=== PATIENT | female | born 1975 | race Hispanic/Latino ===

== ENCOUNTER 2019-07-09 21:31 | Observation (INO) | payer SELFPAY ==
[~2019-07-09 21:31] MED LIST: Iopamidol-370 76% 500 ML 1 ML ONE
[2019-07-09] MEDS ORDERED: Ondansetron ODT 4 MG TAB ONE (21:38)
[2019-07-09] MEDS ORDERED: Acetaminophen 500 MG TAB ONE (22:04)
[2019-07-09] MEDS ORDERED: Metoclopramide HCl 10 MG/2 ML VIAL ONE (22:04)
[2019-07-09] MEDS ORDERED: diphenhydrAMINE 50 MG/ML VIAL ONE (22:04)
[2019-07-09 22:24] LABS: Prothrombin Time 12.9 SEC (12.0-14.7)
[2019-07-09 22:27] LABS: #Monocytes 0.2 thou/uL (0.11-0.59); #Neutrophils 8.9 thou/uL (1.40-6.50); %Basophils 0.2 % (0.0-1.0); %Eosinophils 0.1 % (0.0-10.0); %Lymphocytes 9.9 % (21.0-51.0); %Monocytes 1.9 % (0.0-10.0); %Neutrophils 87.9 % (42.0-75.0); Hemoglobin 13.6 g/dL (12.0-16.0); Mean Corpuscular HGB CONC 33.6 g/dL (32.0-36.0); Mean Corpuscular Hemoglobin 31.2 pg (27.0-31.0); Mean Corpuscular Volume 92.6 fL (78.0-98.0); Platelet Count 236 thou/uL (130-400); RBC Distribution Width 12.3 % (11.5-14.5); Red Blood Cell (RBC) Count 4.37 mill/uL (4.20-5.40); White Blood Cell (WBC) Count 10.1 thou/uL (4.8-10.8)
[2019-07-09 22:29] LABS: BHCG - Serum Negative (NEGATIVE); Pregs Control Background? CLEAR/WHITE (CLR/WHITE); Pregs Control Bar Appear? YES (CONTROL BAR)
[2019-07-09 22:30] LABS: PTT 22.6 SEC (22.9-36.1)
[2019-07-09 22:44] LABS: ALT (SGPT) 9 U/L (8-55); AST (SGOT) 17 U/L (5-34); Albumin 4.6 g/dL (3.5-5.0); Alkaline Phosphatase 63 U/L (40-110); Anion Gap 17 mmol/L (10-20); BUN (Urea Nitrogen) 16 mg/dL (7.0-18.7); Calc. Creatinine Clearance 0 mL/min (70-130); Calcium 10.1 mg/dL (7.8-10.44); Carbon Dioxide 19 mmol/L (22-29); Chloride 104 mmol/L (98-107); Estimated GFR-MDRD 86; Globulin 3.4 g/dL (2.4-3.5); Glucose 159 mg/dL (70-105); Potassium 3.5 mmol/L (3.5-5.1); Sodium 136 mmol/L (136-145)
--- NOTE | 2019-07-09 23:33 | CT ---
CT HEAD WITHOUT CONTRAST: History: Headache. Comparison: 03-06-13 FINDINGS: Ventricles are of normal size and position. Aneurysm clip in the base of the skull to the left of mid line is again seen producing spray artifact. There is no evidence of hemorrhage. No infarct, mass, or edema. Paranasal sinuses are clear. IMPRESSION: No acute abnormality. POS: OFF
--- NOTE | 2019-07-09 23:36 | CT ---
CTA HEAD: Technique: Axial tomograms were obtained with IV enhancement following angio protocol with multiplana r reconstruction and 3D post processing. Indications: Headache, history of aneurysm. Comparison: CTA head 02-16-13. FINDINGS: The intracranial internal carotid arteries are patent and symmetric. Aneurysm clip at the level of th e right internal carotid artery is again seen. This produces significant spray artifact. No evidence of recurrent aneurysm. The right MCA is patent and unremarkable. Left MCA is unremarkable. Both ACAs are patent and unremarkable. Basilar arteries unremarkable. Both cerebrals are unremarkable. 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 There is no change when compared to CTA head of 02-16-13. CTA NECK: Axial tomograms obtained with multiplanar reconstruction and 3D post processing. Indications: Headache. FINDINGS: Carotid arteries and extracranial internal carotid arteries are unremarkable. Vertebral arteries are patent and unremarkable. Soft tissues unremarkable. IMPRESSION: Unremarkable CTA neck. POS: OFF
[2019-07-10] MEDS ORDERED: Promethazine HCl 25 MG/ML VIAL ONE (00:10)
[2019-07-10] MEDS ORDERED: Ondansetron PF 4 MG/2 ML Vial IVP PRN (02:39)
[2019-07-10] MEDS ORDERED: HYDROcodone/Acetaminophen 5/325 mg Tablet PO PRN (02:39)
[2019-07-10] MEDS ORDERED: hydrALAZINE 20 MG/ML VIAL SLOW IVP PRN (02:43)
[2019-07-10] MEDS ORDERED: Morphine 2 MG/ML SYRINGE SLOW IVP PRN (02:43)
[2019-07-10] MEDS ORDERED: Sodium Chloride 0.9% 1,000 ML IV SCH (02:45)
[2019-07-10] MEDS ORDERED: Potassium Chloride 20 MEQ/100 ML PREMIX BAG IVPB SCH (03:00)
--- NOTE | 2019-07-10 03:42 | HP ---
PRESENTING COMPLAINT: Persistent headache. HISTORY OF PRESENT ILLNESS: Adrian Ayoub, 44-year-old female with past medical history of subarachnoid hemorrhage in 2013, status post coiling with followup MRI one year later, showing no residual bleeding. The patient presented today because of 3-day history of recurrent headache after recent travel. The patient developed associated nausea and vomiting since the last one day. Headaches continue to worsen. She rates the pain of headache on presentation at about 10/10. It is generalized. She was given Benadryl. An attempt was made to obtain LP by the ED physician, but was unsuccessful given the patient's movement. The patient is a bit drowsy and not giving much history. Sister at bedside is helping with history. Sister admits the patient, has a history of chronic cannabis abuse and has been using cannabis daily until the last three days. The patient denies any fever or chills. She denies any diarrhea. PAST MEDICAL HISTORY: Subarachnoid bleed of unknown etiology, status post endovascular coiling six years ago. PAST SURGICAL HISTORY: None. HOME MEDICATIONS: Keppra 500 b.i.d. SOCIAL HISTORY: The patient currently resides with sister. History of daily cannabis abuse. No history of alcohol or illicit drug use. FAMILY HISTORY: Significant for hypertension, but no CVA. REVIEW OF SYSTEMS: Poor given the patient appears to be sleepy, but intermittently answering few questions. She denies every other symptoms except as noted above, x10 systems reviewed. PHYSICAL EXAMINATION: CURRENT VITAL SIGNS: Blood pressure of 144/76, respiratory rate of 18, temperature afebrile at 98, O2 saturation is 98% on room air. GENERAL: Obese, young female, lying in bed, appears sleepy but arousable and intermittently conversant. HEENT: Head is atraumatic, normocephalic. Pupils equal and reactive to light. Anicteric. Dry oral mucosa. NECK: No JVD. No carotid bruit. RESPIRATORY: Good air entry. No crepitation. CARDIOVASCULAR: S1, S2. Rate and rhythm regular. GI: Abdomen is full, soft, nontender. Bowel sounds positive. EXTREMITIES: No pedal edema. No calf tenderness. NEUROLOGIC: The patient is drowsy, but after being given Benadryl, intermittently arousable. No neurological focal motor deficit. Pronator drift unable to obtain. LABORATORY DATA: WBC 10, hemoglobin 13, platelets 236. No bands. INR 1.0. Potassium 3.5, sodium 136, creatinine 0.7. AST and alkaline phosphatase normal. Head CT shows no acute intracranial pathology. No acute bleed noted, but noted artifact from previous aneurysm clip. CT of the [place] of [place] also unremarkable. IMPRESSION: 1. Recurrent headaches. 2. History of subarachnoid bleed. 3. Chronic marijuana use. PLAN: We will admit the patient to observation. We will obtain stat MRA to rule out subarachnoid bleed given unclear images from CT of the head. If the MRI is negative, then low likelihood of recurrence of bleed. We will address pain medication with p.r.n. morphine and Zofran for now given patient's recurrent nausea. History of cannabis use could predispose the patient to current symptoms at this time and this was discussed with the patient. The patient advised to avoid daily illicit drug use. We will do SCDs for DVT prophylaxis. No systemic heparin for now. Advanced directives, patient is a full code. We will start on gentle IV fluid and adjust after MRA. Total time spent in review of record, discussion with the patient and sister, greater than 55 minutes. Job ID: [id number]
[2019-07-10] MEDS ORDERED: Cyclobenzaprine 10 MG TAB ONE (06:32)
[2019-07-10 06:58] LABS: Hemoglobin 12.9 g/dL (12.0-16.0); Mean Corpuscular HGB CONC 33.8 g/dL (32.0-36.0); Mean Corpuscular Hemoglobin 31.9 pg (27.0-31.0); Mean Corpuscular Volume 94.5 fL (78.0-98.0); Mean Platelet Volume 8.6 fL (7.4-10.4); Platelet Count 212 thou/uL (130-400); RBC Distribution Width 12.4 % (11.5-14.5); Red Blood Cell (RBC) Count 4.04 mill/uL (4.20-5.40); White Blood Cell (WBC) Count 9.8 thou/uL (4.8-10.8)
[2019-07-10] MEDS ORDERED: Ondansetron PF 4 MG/2 ML Vial ONE (08:32)
[2019-07-10 08:41] LABS: Band 2 % (5-11); Lymphocytes 16 % (21-51); MDiff Complete? YES; Monocytes 3 % (0-10); Neutrophil 79 % (42-75); RBC Morphology Normal
[2019-07-10] MEDS ORDERED: levETIRAcetam 500 MG TAB PO SCH (09:00)
[2019-07-10] MEDS ORDERED: Famotidine/PF 20 mg/2ml Vial SLOW IVP SCH (09:00)
--- NOTE | 2019-07-10 09:33 | MRI ---
MR angiogram of the head: 07/10/2019 HISTORY: Headache, prior intracranial aneurysm coiling TECHNIQUE: Routine noncontrast enhanced 3-D [id number] MR angiography of the brain is obtained. FINDINGS: Motion artifact limits detailed assessment of the arterial structures. Distal vertebral art eries are patent and demonstrate antegrade blood flow. The basilar artery and its branches are patent as well. No saccular aneurysm, high-grade stenosis, or vascular occlusion is seen involving th e posterior circulation. Artifact is seen at the ICA bifurcation on the left, slightly limiting assessment in this region, on the basis of prior coil embolization. The A1 segment and the M1 segment appears patent bilaterally. The MCA bifurcation, the distal MCA branches, and the distal OMARI branches appear grossly unremarkable bilaterally. No high-grade stenosis, vascular occlusion, or patent saccular aneurysm appreciated within the anterior circulation on either side. IMPRESSION: No acute findings.
[2019-07-10] MEDS ORDERED: Famotidine/PF 20 mg/2ml Vial ONE (10:42)
[2019-07-10 13:15] VITALS: TEMP 98.6
[2019-07-10 13:24] VITALS: BMI 45.4
--- NOTE | 2019-07-10 14:04 | PDOC.HOSPP ---
- Subjective Subjective: Pt reports that she is feeling much better than yesterday. States Zofran helped with nausea. Denies sick contacts and fever. - Objective Vital Signs & Weight: Vital Signs (12 hours) Temp Pulse Resp BP Pulse Ox 07/10/19 12:17 98.6 F 64 16 101/60 98 Weight Weight 181 lb 8 oz Result Diagrams: 07/10/19 06:35 07/09/19 22:08 Hospitalist ROS - Medication Medications: Active Medications Generic Name Dose Route Start Last Admin Trade Name Freq PRN Reason Stop Dose Admin Famotidine 20 mg 07/10/19 09:00 07/10/19 10:59 Pepcid SLOW IVP 20 mg Q12HR KLAUS Administration Sodium Chloride 1,000 mls @ 100 mls/hr 07/10/19 02:45 07/10/19 05:08 Normal Saline 0.9% IV 1,000 mls .Q10H KLAUS Administration Levetiracetam 500 mg 07/10/19 09:00 07/10/19 10:56 Keppra PO Not Given BID KLAUS Ondansetron HCl 4 mg 07/10/19 02:39 07/10/19 08:41 Zofran IVP 4 mg Q6H PRN Administration Nausea/Vomiting - Exam General Appearance: NAD, awake alert ENT: no oropharyngeal lesions, moist mucosa Heart: RRR, no murmur, no gallops, no rubs Respiratory: CTAB, no wheezes, no rales, no ronchi, normal chest expansion, no tachypnea Gastrointestinal: soft, non-tender, non-distended, normal bowel sounds Extremities: no edema Hosp A/P (1) Headache Code(s): R51 - HEADACHE Status: Acute (2) Nausea and vomiting Code(s): R11.2 - NAUSEA WITH VOMITING, UNSPECIFIED Status: Acute - Plan Nausea and Vomiting: Likely secondary to hyperemesis cannabis, but cannot rule out viral cause. CT and MRA are normal. Will advance diet as tolerated by patient. If able to tolerate oral intake, plan to discharge tomorrow. Headache: Improved. CT and MRA normal. Ruled out recurrence of subarachnoid hemorrhage.
[2019-07-10 15:39] VITALS: BP 100/51
--- NOTE | 2019-07-11 00:23 | CON ---
DATE OF CONSULTATION: 07/10/2019 CONSULTING PHYSICIAN: Hospitalist Service. IMPRESSION: 1. Probable migraine. 2. History of cerebral aneurysm. PLAN: 1. Office followup as needed. 2. Reglan 10 mg q.6 hours as needed for nausea. 3. Tylenol Extra Strength 1000 mg q.8 hours as needed. HISTORY OF PRESENT ILLNESS: Ms. Campbell is a 44-year-old female with a history of a cerebral aneurysm. There was a coil several years ago. [place] the airport when she started experiencing nausea, vomiting, and headache. Headache was predominantly occipital. She made the flight home and came to the hospital for evaluation. She had a CT and CT angiogram, both of which were normal. Her lab work was all unremarkable. She has been afebrile and her blood pressures have been normal as well. Her headache is significantly better. She reports some low-grade frontal headache. She has had some intermittent nausea prior to the onset of this. She denies a history of migraine. Her health has been good otherwise. She is not followed by a primary care doctor. She is a bit concerned about some lumps that she has noted in her right breast. She has not had a recent mammogram. PAST MEDICAL HISTORY: Cerebral aneurysm. FAMILY HISTORY: Unremarkable. ALLERGIES: NONE. SOCIAL HISTORY: Positive for marijuana use. REVIEW OF SYSTEMS: Ten-system review of systems is otherwise negative. PHYSICAL EXAMINATION: GENERAL: She is slightly overweight middle-aged woman, in no acute distress. VITAL SIGNS: Have been stable. She is afebrile. HEENT: Pupils are equal and reactive. Conjunctivae are clear. Oropharynx is clear. NECK: Supple. No lymphadenopathy. EXTREMITIES: No cyanosis or edema. NEUROLOGIC: She is alert and appropriate. Her speech is fluent and clear. Cranial nerves are intact. Motor exam shows equal restorative care technician strength. She has no tremor or dysmetria. Sensations intact. She walks independently. She has no abnormal movements. She was able to eat and drink without vomiting earlier. IMAGING: EKG shows a sinus rhythm. SUMMARY: Middle-aged woman with severe headache and nausea and vomiting suggestive of a migraine. Her workup is otherwise negative. I would be happy to follow up with her as an outpatient. I have suggested that she get a primary care doctor to further investigate her breast masses. Job ID: [id number]
== END 2019-07-10 18:05 | disposition home or self-care (01) ==
LOC: ERS 21:31 → ERHOLD 07-10 02:06 → 2SE 07-10 12:37
PROVIDERS: ADMIT Internal Medicine; ATTEND Internal Medicine
DX: R51 Headache (principal); R11.2 Nausea with vomiting, unspecified; F12.90 Cannabis use, unspecified, uncomplicated; Z79.899 Other long term (current) drug therapy
CPT/HCPCS: 36415; 70450; 70496; 70544; 80053; 84703; 85007; 85025; 85027; 85610; 85730; 96361; 96365; 96375; G0378; J1200; J2405; J2550; J2765; J3480; Q0162; Q9967; S0028

== ENCOUNTER 2024-07-09 07:51 | Outpatient (CLI) | payer OTHER | END 2024-07-09 07:52 | disposition home or self-care (01) | LOC: ULT 07:51 | PROVIDERS: ATTEND Physician Assistant | DX: R10.13 Epigastric pain (principal) | CPT/HCPCS: 76705 ==